=== PATIENT | female | born 1970 | race Caucasian/White ===

== ENCOUNTER → 2017-04-19 | Outpatient (CLI) | payer BC ==
--- NOTE | 2017-04-19 16:34 | RAD ---
Examination: X-rays of the left foot. Clinical history: Left foot pain. Technique: Three views of the left foot were obtained. Comparison: None available. Findings: No acute fracture, dislocation, or destructive bony lesion is noted. No arthropathy is noted. A bony spur is seen at the plantar aspect of the calcaneus, consistent with enthesopathy. No soft tissue abnormality is noted. Impression: 1. No acute fracture or dislocation. Reported By:
--- NOTE | 2017-04-19 16:36 | RAD ---
Examination: X-rays of the right foot. Clinical history: Right foot pain. Technique: Three views of the right foot were obtained. Comparison: None available. Findings: No acute fracture, dislocation, or destructive bony lesion is noted. No arthropathy is noted. A bony spur is seen at the plantar aspect of the calcaneus, consistent with enthesopathy. No soft tissue abnormality is noted. Impression: 1. No acute fracture or dislocation. Reported By:
== END | disposition home or self-care (01) ==
LOC: RAD 14:47
PROVIDERS: ATTEND General Practice
DX: M25.572 Pain in left ankle and joints of left foot (principal); M25.571 Pain in right ankle and joints of right foot
CPT/HCPCS: 73630